=== PATIENT | male | born 1990 | race American Indian/Alaskan Native ===

== ENCOUNTER 2019-09-03 22:48 | Emergency (ER) | payer SELFPAY ==
[2019-09-03] MEDS ORDERED: Sodium Chloride 0.9% 10 ML Syringe FLUSH PRN (22:55)
[2019-09-03] MEDS ORDERED: Ondansetron 4 MG/2 ML SDV IVPUSH ONE (22:55)
[2019-09-03] MEDS ORDERED: Naloxone 0.4 MG/ML SDV IVPUSH ONE (22:56)
[2019-09-03] MEDS ORDERED: Sodium Chloride 0.9% 1,000 ML IV SCH (23:00)
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
[2019-09-04] MEDS ORDERED: Metoclopramide 10 MG/2 ML SDV IVPUSH ONE (01:04)
[2019-09-04] MEDS ORDERED: Sodium Chloride 0.9% 1,000 ML IV SCH (01:15)
== END 2019-09-04 07:33 | disposition home or self-care (01) ==
LOC: JD.ED 22:48
DX: S60.511A Abrasion of right hand, initial encounter (principal); S60.512A Abrasion of left hand, initial encounter; F10.120 Alcohol abuse with intoxication, uncomplicated; Y04.0XXA Assault by unarmed brawl or fight, initial encounter
CPT/HCPCS: 36415; 51702; 80053; 80306; 80307; 83735; 85025; 96361; 96374; 96375; 99284; J2310; J2405; J2765; J7030

== ENCOUNTER 2020-03-22 02:30 | Emergency (ER) | payer SELFPAY ==
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
[2020-03-22] MEDS ORDERED: Ketorolac 60 MG/2 ML SDV IM ONE (03:29)
--- NOTE | 2020-03-26 13:09 | CR ---
PROCEDURE INFORMATION: Exam: XR Left Tibia and Fibula Exam date and time: 03/22/2020 3:16 AM Age: 29 years old Clinical indication: Injury or trauma; Fall; Fracture, traumatic; Closed fracture; Left; Shaft of the fibula TECHNIQUE: Imaging protocol: XR Left tibia and fibula. Views: 2 views. COMPARISON: No relevant prior studies available. FINDINGS: Bones/joints: The distal most tibia and fibula are excluded from this study. There is an obliquely oriented mildly diastatic fracture of the distal fibula described on concurrent ankle series. The remainder of the bony elements are intact without additional fracture. Soft tissues: Unremarkable IMPRESSION: The proximal to mid tibia and fibula are intact. Distal fibular fracture is described on concurrent ankle series Thank you for allowing us to participate in the care of your patient. Dictated and Authenticated by: Teresa Mercer MD 03/22/2020 5:06 AM Central Time ([place] & [place]) [place]
--- NOTE | 2020-03-26 13:10 | CR ---
PROCEDURE INFORMATION: Exam: XR Left Ankle Exam date and time: 03/22/2020 3:17 AM Age: 29 years old Clinical indication: Injury or trauma; Fall; Fracture, traumatic; Closed fracture; Left; Shaft of the fibula TECHNIQUE: Imaging protocol: XR Left ankle. Views: 3 or more views. COMPARISON: No relevant prior studies available. FINDINGS: Bones/joints: There is an obliquely oriented, mildly diastatic fracture of the distal fibula located approximately 7 cm proximal to the malleolar tip. There is a questionable chip fracture at the medial malleolus (series 3, image 1 only) The remainder of the bony elements appear intact without additional fracture. The talar dome is maintained. Soft tissues: Medial and lateral soft tissue swelling overlies the malleoli IMPRESSION: Mildly diastatic fracture of the distal fibula. Possible chip fracture at the medial malleolus Thank you for allowing us to participate in the care of your patient. Dictated and Authenticated by: Teresa Mercer MD 03/22/2020 5:04 AM Central Time ([place] & [place]) [place]
== END 2020-03-22 04:50 | disposition home or self-care (01) ==
LOC: EDSEX 02:30 → JD.ED 02:30 → MERGE 02:30 → JD.ED 04:50
DX: S82.832A Other fracture of upper and lower end of left fibula, initial encounter for closed fracture (principal); I10 Essential (primary) hypertension; E66.9 Obesity, unspecified; F10.129 Alcohol abuse with intoxication, unspecified; F17.210 Nicotine dependence, cigarettes, uncomplicated; F17.290 Nicotine dependence, other tobacco product, uncomplicated; Z88.1 Allergy status to other antibiotic agents; W00.0XXA Fall on same level due to ice and snow, initial encounter
CPT/HCPCS: 29515; 73590; 73610; 96372; 99284; J1885; 99283